=== PATIENT | male | born 1980 | race African-American/Black ===

== ENCOUNTER 2021-06-20 13:22 | Emergency (ER) | payer SELFPAY ==
[~2021-06-20] VITALS: Ht 177.8 cm; Wt 75.0 kg
[2021-06-20 13:35] VITALS: TEMP 98.3
[2021-06-20] MEDS ORDERED: AMOXICILLIN 8751 TAB PO (14:12)
[2021-06-20 14:50] VITALS: BP 124/71; PULSE 80
[2021-06-23] MEDS ORDERED: FLEXERIL 1010 MG/TAB PO (20:27)
[2021-06-23] MEDS ORDERED: NORCO 325 MG-51 TAB PO (20:27)
== END 2021-06-20 14:50 | disposition home or self-care (01) ==
LOC: COL.ER 13:22
DX: S01.511A Laceration without foreign body of lip, initial encounter (principal); F17.210 Nicotine dependence, cigarettes, uncomplicated; Z98.890 Other specified postprocedural states; W54.0XXA Bitten by dog, initial encounter